=== PATIENT | male | born 1945 | race Two or more races ===

== ENCOUNTER 2019-05-28 09:53 | Emergency (ER) | payer OTHER ==
[~2019-05-28] VITALS: Ht 165.1 cm; Wt 86.2 kg
[2019-05-28 09:58] VITALS: Ht 165.1 cm; Wt 86.2 kg
[2019-05-28 10:19] LABS: BASOPHIL % 0.3 % (0-2)
[2019-05-28 10:26] LABS: PLATELET COUNT 125 x10^3mcL (130-400); RED CELL DISTRIBUTION WIDTH 16.1 % (11.5-14.5)
[2019-05-28 10:28] LABS: ALKALINE PHOSPHATASE 242 U/L (46-116); ALT/SGPT 48 U/L (16-63); AST/SGOT 86 U/L (15-37); BILIRUBIN TOTAL 4.3 mg/dL (0.20-1.00); CALCIUM 7.3 mg/dL (8.5-10.1); CARBON DIOXIDE 28.2 mmol/L (21-32); CHLORIDE SERUM 106 mmol/L (98-107); CREATININE SERUM 1.3 mg/dL (0.7-1.3); GLUCOSE SERUM 88 mg/dL (74-106); LIPASE 171 IU/L (73-393); SODIUM SERUM 142 mmol/L (136-145); TRIGLYCERIDES 97 mg/dL (<150)
[2019-05-28 10:38] LABS: T3 TOTAL 0.96 ng/mL
[2019-05-28 10:40] LABS: ALBUMIN 2.3 g/dL (3.4-5.0); CHOLESTEROL 84 mg/dL (<200); FREE T4 1.38 ng/dL (0.76-1.46); FREE THYROXINE INDEX 2.8 ug/dL (1.4-4.5); HDL CHOLESTEROL 7 mg/dL (40-60); T4(THYROXINE) 7.3 ug/dL (4.7-13.3); TOTAL PROTEIN, SERUM 6.1 g/dL (6.4-8.2)
[2019-05-28 10:41] LABS: POTASSIUM SERUM 2.9 mmol/L (3.5-5.1)
[2019-05-28] MEDS ORDERED: LISINOPRIL2.5 MG (13:34)
[2019-05-28 18:36] VITALS: BP 145/66
== END 2019-05-28 18:36 | disposition short-term general hospital (02) ==
LOC: ED 09:53
PROVIDERS: Specialist
DX: E87.6 Hypokalemia (principal); E86.0 Dehydration; R55 Syncope and collapse; R25.1 Tremor, unspecified; E46 Unspecified protein-calorie malnutrition; R74.0 Nonspecific elevation of levels of transaminase and lactic acid dehydrogenase [LDH]; F10.20 Alcohol dependence, uncomplicated; I10 Essential (primary) hypertension; E11.9 Type 2 diabetes mellitus without complications; Z85.46 Personal history of malignant neoplasm of prostate; Y90.9 Presence of alcohol in blood, level not specified
CPT/HCPCS: 82962; 83880; 84439; J3475; J3480; J7040; Q0092